=== PATIENT | female | born 1950 | race Caucasian/White ===

== ENCOUNTER 2017-11-04 11:11 | Emergency (ER) | payer BC ==
[2017-11-04 11:12] VITALS: BMI 26.4
[2017-11-04] MEDS ORDERED: Sodium Chloride 0.9% 1,000 ML IV STA (12:16)
--- NOTE | 2017-11-04 12:20 | ED PDOC ---
Arrival/HPI - General Chief Complaint: GI Problem Time Seen by Provider: 11/04/17 11:42 Historian: Patient - History of Present Illness Narrative History of Present Illness (Text): you were treated in the ED today for hx of hypertension, cholesterol, diabetes, and recently in july 2017 diagnosed with Crohn's disease and noting 6 months of intermittent diarrhea/loose stools without bile or blood but having weight loss of about 30 lbs with colonoscopy done at that time and now with back of head discomfort but and otherwise without any head injury/neck pain/ loss of consciousness/nausea/vomiting/headache/dizziness/difficulty breathing/ chest pain/abdomen pain/numbness/tingling/loss of limb function/pain with urination. Time/Duration: Other (6 months) Symptom Onset: Gradual Symptom Course: Intermittent Quality: Aching Severity Level: 1 Activities at Onset: Rest Context: Sitting Past Medical History - Provider Review Nursing Documentation Reviewed: Yes - Travel History Have you recently traveled outside [place] w/in the past 3 mons?: No - Infectious Disease Hx of Infectious Diseases: None - Tetanus Immunization Tetanus Immunization: Unknown - Cardiac Hx Cardiac Disorders: Yes Hx Hypertension: Yes - Pulmonary Hx Respiratory Disorders: No - Neurological Hx Neurological Disorder: No - HEENT Hx HEENT Disorder: No - Renal Hx Renal Disorder: No - Endocrine/Metabolic Hx Endocrine Disorders: Yes Hx Hypothyroidism: Yes - Hematological/Oncological Hx Blood Disorders: No - Integumentary Hx Dermatological Disorder: No - Musculoskeletal/Rheumatological Hx Musculoskeletal Disorders: No - Gastrointestinal Hx Gastrointestinal Disorders: Yes Hx Gastroesophageal Reflux: Yes Other/Comment: CROHNS - Genitourinary/Gynecological Hx Genitourinary Disorders: No - Psychiatric Hx Psychophysiologic Disorder: No Hx Substance Use: No - Past Surgical History Past Surgical History: No Previous - Surgical History Hx Appendectomy: Yes Hx Hysterectomy: Yes - Suicidal Assessment Feels Threatened In Home Enviroment: No Family/Social History - Physician Review Nursing Documentation Reviewed: Yes Family/Social History: No Known Family HX Smoking Status: Never Smoked Hx Alcohol Use: No Hx Substance Use: No Hx Substance Use Treatment: No Allergies/Home Meds Allergies/Adverse Reactions: Allergies No Known Allergies Allergy (Verified 11/04/17 11:28) Home Medications: Home Meds Medication Instructions Recorded Confirmed Levothyroxine [Synthroid] 25 mcg PO DAILY 02/09/16 11/04/17 metFORMIN [glucOPHAGE] 500 mg PO DAILY 02/09/16 11/04/17 SITagliptin [Januvia] 100 mg PO DAILY 11/04/17 11/04/17 Review of Systems - Review of Systems Constitutional: Fatigue Eyes: Normal ENT: Normal Respiratory: Normal Cardiovascular: Normal Gastrointestinal: Stool Changes, Diarrhea Genitourinary Female: Normal Musculoskeletal: Normal Skin: Normal Neurological: Headache Endocrine: Normal Hemo/Lymphatic: Normal Psychiatric: Normal Physical Exam Vital Signs Reviewed: Yes Vital Signs Temp Pulse Resp BP Pulse Ox 11/04/17 13:15 86 18 147/70 98 11/04/17 11:30 98.6 F 82 16 148/98 H 95 Temperature: Afebrile Blood Pressure: Hypertensive Pulse: Regular Respiratory Rate: Normal Appearance: Positive for: Well-Appearing, Non-Toxic, Comfortable Pain Distress: None Mental Status: Positive for: Alert and Oriented X 3 - Systems Exam Head: Present: Atraumatic, Normocephalic Pupils: Present: PERRL Extroacular Muscles: Present: EOMI Conjunctiva: Present: Normal Ears: Present: Normal Mouth: Present: Moist Mucous Membranes Pharnyx: Present: Normal Nose (External): Present: Atraumatic Nose (Internal): Present: Normal Inspection Neck: Present: Normal Range of Motion, Other (no c-t-l spinal or paraspinal tenderness) Respiratory/Chest: Present: Clear to Auscultation Cardiovascular: Present: Regular Rate and Rhythm Abdomen: No: Tenderness, Distention, Normal Bowel Sounds, Peritoneal Signs, Rebound, Guarding, McBurney's Point Tender, Rovsing's Sign Present, Hernias, Feeding Tubes, Ostomy Tubes, Mass/Organomegaly, Scars, Other Back: Present: Normal Inspection Upper Extremity: Present: Normal Inspection Lower Extremity: Present: Normal Inspection Neurological: Present: GCS=15, CN II-XII Intact, Speech Normal, Motor Func Grossly Intact Skin: Present: Warm, Normal Color Psychiatric: Present: Alert, Oriented x 3, Normal Insight, Normal Concentration Medical Decision Making ED Course and Treatment: you were treated in the ED today for hx of hypertension, cholesterol, diabetes, and recently in july 2017 diagnosed with Crohn's disease and noting 6 months of intermittent diarrhea/loose stools without bile or blood but having weight loss of about 30 lbs with colonoscopy done at that time and now with back of head discomfort but and otherwise without any head injury/neck pain/ loss of consciousness/nausea/vomiting/headache/dizziness/difficulty breathing/ chest pain/abdomen pain/numbness/tingling/loss of limb function/pain with urination. You were otherwise breathing easily, pink moist lips, smiling and talking, good strength/sensation, alert/oriented, walking easily, clear lungs, no abdomen tenderness, no spinal tenderness or redness, no fever temp 98.6, stable heart rate 82, stable breathing rate 16, excellent oxygen level 95% room air, elevated blood pressure 148/98_ which we recommend repeat in 2-3 days primary care office to determine further treatment, you have blood tests no infection count 7, stable blood level hemoglobin 10platelets 377, stable chemistry, except for mildly low potassium 3.1 replaced, glucose elevated 209, magnesium mildly low 1.6 replaced, heart blood test negative less than 0.01, lipase 527, urine test negative for infection at this time, ct head radiology showed no acute findings, ct abdomen/pelvis showed no acute findings, ECG sinus rhythm, saline, refused pain medication, observation done in the ED with improvement, counselled to drink lots of fluids and continue to monitor symptoms and thus discharged home. 1. Recommend tylenol as directed for pain. 2. Recommend follow-up primary care 2 days to review symptoms, repeat potassium/ magnesium level to ensure improvement, referral to endocrine clinic for blood sugar control, neurology to review your symptoms, referral gastroenterology to review your symptoms, referral to urology for protein in urine to ensure no complications. 4. If any worsening pain, fever, chills, nausea, vomiting, difficulty breathing, numbness, loss of limb function, pain with urination or any medical condition then return to the ED. Report Date : 11/04/2017 13:03:48 PROCEDURE: CT HEAD WITHOUT CONTRAST. Dictator : Clayton Dixon MD IMPRESSION: No acute findings Report Date : 11/04/2017 15:24:07 PROCEDURE: CT Abdomen and Pelvis with contrast Dictator : Clayton Dixon MD IMPRESSION: No acute findings 11/04/17 16:07 Reassessment Condition: Re-examined, Improved - Lab Interpretations Lab Results: 11/04/17 12:55 11/04/17 12:55 Lab Results 11/04/17 13:05: Urine Color Yellow, Urine Appearance Clear, Urine pH 6.5, Ur Specific [place] 1.010, Urine Protein Trace H, Urine Glucose (UA) 500 H, Urine Ketones Negative, Urine Blood Negative, Urine Nitrate Negative, Urine Bilirubin Negative, Urine Urobilinogen 0.2, Ur Leukocyte Esterase Negative, Urine RBC 0 - 2, Urine WBC 0 - 2, Ur Epithelial Cells 4 - 5, Urine Bacteria Few 11/04/17 12:55: PT 11.8, INR 1.03, APTT 29.1 11/04/17 12:55: Sodium 142, Potassium 3.1 L, Chloride 101, Carbon Dioxide 31, Anion Gap 13, BUN 10, Creatinine 0.5 L, Est GFR ( Amer) > 60, Est GFR ( Non-Af Amer) > 60, Random Glucose 209 H, Calcium 8.9, Magnesium 1.6 L, Total Bilirubin 0.2, AST 12 L, ALT 20, Alkaline Phosphatase 66, Lactate Dehydrogenase 324 L, Total Creatine Kinase 38, Troponin I < 0.01, Total Protein 6.0, Albumin 3.1, Globulin 2.8, Albumin/Globulin Ratio 1.1, Lipase 527 H 11/04/17 12:55: WBC 7.1 D, RBC 3.70, Hgb 10.7 L, Hct 31.8 L, MCV 85.9, MCH 28.9 , MCHC 33.6, RDW 13.6, Plt Count 377, MPV 9.1, Gran % 50.8, Lymph % (Auto) 38.5 H, Amador % (Auto) 8.3 H, Eos % (Auto) 1.8, Baso % (Auto) 0.6, Gran # 3.60, Lymph # (Auto) 2.7, Amador # (Auto) 0.6, Eos # (Auto) 0.1, Baso # (Auto) 0.04 I have reviewed the lab results: Yes - RAD Interpretation Radiology Orders: 11/04/17 12:15 HEAD W/O CONTRAST [CT] Stat 11/04/17 13:54 ABDOMEN & PELVIS [ABD & PELVIS IV CONTRAST ONLY] [CT] Stat - Medication Orders Current Medication Orders: Discontinued Medications Sodium Chloride (Sodium Chloride 0.9%) 1,000 mls @ 999 mls/hr IV .Q1H1M STA Stop: 11/04/17 13:16 Last Admin: 11/04/17 13:02 Dose: 999 mls/hr eMAR Start Stop Document 11/04/17 13:02 [facility] (Rec: 11/04/17 13:02 [id number]) Intravenous Solution Start Date 11/04/17 Start Time 13:02 End Date 11/04/17 End time 14:02 Total Infusion Time 60 Magnesium Sulfate/Dextrose (Magnesium Sulfate 1 Gm/100 Ml D5w) 1 gm in 100 mls @ 100 mls/hr IVPB ONCE ONE Stop: 11/04/17 14:55 Last Admin: 11/04/17 14:31 Dose: 100 mls/hr eMAR Start Stop Document 11/04/17 14:31 [facility] (Rec: 11/04/17 14:31 [id number] Intravenous Solution Start Date 11/04/17 Start Time 14:31 End Date 11/04/17 End time 15:31 Total Infusion Time 60 Potassium Chloride (K-Dur 20 Meq Er Tab) 40 meq PO STAT STA Stop: 11/04/17 13:57 Last Admin: 11/04/17 14:31 Dose: 40 meq Disposition/Present on Arrival - Present on Arrival Any Indicators Present on Arrival: No History of DVT/PE: No History of Uncontrolled Diabetes: Yes Urinary Catheter: No History of Decub. Ulcer: No History Surgical Site Infection Following: None - Disposition Have Diagnosis and Disposition been Completed?: Yes Diagnosis: Headache Disposition: HOME/ ROUTINE Disposition Time: 16:09 Patient Plan: Discharge Condition: IMPROVED Discharge Instructions (ExitCare): Headache, Adult (DC) Additional Instructions: you were treated in the ED today for hx of hypertension, cholesterol, diabetes, and recently in july 2017 diagnosed with Crohn's disease and noting 6 months of intermittent diarrhea/loose stools without bile or blood but having weight loss of about 30 lbs with colonoscopy done at that time and now with back of head discomfort but and otherwise without any head injury/neck pain/ loss of consciousness/nausea/vomiting/headache/dizziness/difficulty breathing/ chest pain/abdomen pain/numbness/tingling/loss of limb function/pain with urination. You were otherwise breathing easily, pink moist lips, smiling and talking, good strength/sensation, alert/oriented, walking easily, clear lungs, no abdomen tenderness, no spinal tenderness or redness, no fever temp 98.6, stable heart rate 82, stable breathing rate 16, excellent oxygen level 95% room air, elevated blood pressure 148/98_ which we recommend repeat in 2-3 days primary care office to determine further treatment, you have blood tests no infection count 7, stable blood level hemoglobin 10platelets 377, stable chemistry, except for mildly low potassium 3.1 replaced, glucose elevated 209, magnesium mildly low 1.6 replaced, heart blood test negative less than 0.01, lipase 527, urine test negative for infection at this time, ct head radiology showed no acute findings, ct abdomen/pelvis showed no acute findings, ECG sinus rhythm, saline, refused pain medication, observation done in the ED with improvement, counselled to drink lots of fluids and continue to monitor symptoms and thus discharged home. 1. Recommend tylenol as directed for pain. 2. Recommend follow-up primary care 2 days to review symptoms, repeat potassium/ magnesium level to ensure improvement, referral to endocrine clinic for blood sugar control, neurology to review your symptoms, referral gastroenterology to review your symptoms, referral to urology for protein in urine to ensure no complications. 4. If any worsening pain, fever, chills, nausea, vomiting, difficulty breathing, numbness, loss of limb function, pain with urination or any medical condition then return to the ED. Referrals: Cynthia Jurado MD [Primary Care Provider] - Follow up with primary Forms: [employer] (Serbian)
[2017-11-04 13:05] LABS: BASO # 0.04 K/mm3 (0.0-2.0); BASO % 0.6 % (0.0-3.0); EOS # 0.1 (0.0-0.7); EOS % 1.8 % (1.5-5.0); GRAN # 3.6 (1.4-6.5); GRAN % 50.8 % (50.0-68.0); HEMOGLOBIN 10.7 g/dL (12.0-16.0); LYMPH # 2.7 (1.2-3.4); LYMPH % 38.5 % (22.0-35.0); MEAN CELL VOLUME 85.9 fl (80.0-105.0); MEAN CORPUSCULAR HEMOGLOBIN 28.9 pg (25.0-35.0); MEAN CORPUSCULAR HGB CONC 33.6 g/dl (31.0-37.0); MEAN PLATELET VOLUME 9.1 fl (7.0-11.0); MONO # 0.6 (0.1-0.6); MONO % 8.3 % (1.0-6.0); RBC 3.7 10^6/uL (3.5-6.1); RED CELL DISTRIBUTION WIDTH 13.6 % (11.5-14.5); WHITE BLOOD COUNT 7.1 10^3/ul (4.5-11.0)
--- NOTE | 2017-11-04 13:05 | CT ---
PROCEDURE: CT HEAD WITHOUT CONTRAST. HISTORY: 66yoF, with posterior headache COMPARISON: 12/02/2015 TECHNIQUE: Axial computed tomography images were obtained through the head/brain without intravenous contrast. Radiation dose: Total exam DLP = 917 mGy-cm. This CT exam was performed using one or more of the following dose reduction techniques: Automated exposure control, adjustment of the mA and/or kV according to patient size, and/or use of iterative reconstruction technique. FINDINGS: HEMORRHAGE: No intracranial hemorrhage. BRAIN: No mass effect or edema. There is a chronic lacunar infarct in the right basal ganglia. Mild microvascular changes are seen. No acute findings VENTRICLES: Unremarkable. No hydrocephalus. CALVARIUM: Unremarkable. PARANASAL SINUSES: Unremarkable as visualized. No significant inflammatory changes. MASTOID AIR CELLS: Unremarkable as visualized. No inflammatory changes. OTHER FINDINGS: None. IMPRESSION: No acute findings
[2017-11-04 13:15] LABS: ALB/GLOB RATIO 1.1 (1.1-1.8); ALBUMIN 3.1 g/dL (3.0-4.8); ALT/SGPT 20 U/L (7-56); AST/SGOT 12 U/L (14-36); BLOOD UREA NITROGEN 10 mg/dL (7-21); CALCIUM 8.9 mg/dL (8.4-10.5); GFR NON-AFRICAN AMERICAN > 60; LIPASE 527 U/L (23-300)
[2017-11-04 13:22] VITALS: RESP 18; O2SAT 98
[2017-11-04 13:26] LABS: TROPONIN I < 0.01 ng/mL
[2017-11-04 13:36] LABS: PH,URINE 6.5 (4.7-8.0); URINE BILIRUBIN NEGATIVE (NEGATIVE); URINE BLOOD NEGATIVE (NEGATIVE); URINE GLUCOSE (UA) 500 mg/dL (NEGATIVE); URINE LEUKOCYTE ESTERASE NEGATIVE Leu/uL (NEGATIVE); URINE PROTEIN TRACE mg/dL (<30 mg/dL); URINE UROBILINOGEN 0.2 E.U./dL (<1 E.U./dL)
[2017-11-04 13:37] LABS: INR 1.03 (0.93-1.08); PARTIAL THROMBOPLASTIN TIME 29.1 Seconds (25.1-36.5); PROTHROMBIN TIME 11.8 SECONDS (9.4-12.5)
[2017-11-04 13:44] LABS: URINE APPEARANCE CLEAR (CLEAR); URINE COLOR YELLOW (YELLOW)
[2017-11-04 13:53] LABS: URINE BACTERIA FEW (NEG); URINE RBC 0 - 2 /hpf (0-2); URINE WBC 0 - 2 /hpf (0-6)
[2017-11-04] MEDS ORDERED: Magnesium Sulfate 1 gm in D5W 1 GM/100 ML BAG IVPB ONE (13:56)
[2017-11-04] MEDS ORDERED: Potassium Chloride 20 mEq ER Tab PO STA (13:56)
[2017-11-04] MEDS ORDERED: Iohexol 350 MG/100 ML VIAL ONE (13:57)
--- NOTE | 2017-11-04 14:56 | CARD ---
APPROVED REPORT EKG Measurement Heart [id number] AL [id number] <Conclusion> Sinus rhythm normal ECG
--- NOTE | 2017-11-04 15:25 | CT ---
PROCEDURE: CT Abdomen and Pelvis with contrast HISTORY: 66yoF, with loose stool/weight loss/lipase 577. COMPARISON: None. TECHNIQUE: Contrast dose: 100 cc of Omni 350 Radiation dose: Total exam DLP = 297 mGy-cm. This CT exam was performed using one or more of the following dose reduction techniques: Automated exposure control, adjustment of the mA and/or kV according to patient size, and/or use of iterative reconstruction technique. FINDINGS: LOWER THORAX: Unremarkable. LIVER: Unremarkable. No gross lesion or ductal dilatation. GALLBLADDER AND BILE DUCTS: Unremarkable. PANCREAS: Unremarkable. No gross lesion or ductal dilatation. SPLEEN: Unremarkable. ADRENALS: Unremarkable. No mass. KIDNEYS AND URETERS: Unremarkable. No hydronephrosis. No solid mass. VASCULATURE: Unremarkable. No aortic aneurysm. BOWEL: Unremarkable. No obstruction. No gross mural thickening. APPENDIX: Normal appendix. PERITONEUM: Unremarkable. No free fluid. No free air. LYMPH NODES: Unremarkable. No enlarged lymph nodes. BLADDER: Unremarkable. REPRODUCTIVE: Unremarkable. BONES: No acute fracture. OTHER FINDINGS: None. IMPRESSION: No acute findings
[2017-11-04 16:41] VITALS: BP 110/72; PULSE 72; TEMP 98
== END 2017-11-04 16:41 | disposition home or self-care (01) ==
LOC: ED 11:11
DX: R51 Headache (principal)
CPT/HCPCS: 70450; 74177; 80053; 81001; 82550; 83615; 83690; 83735; 84484; 85025; 85610; 85730; 87086; 93005; 96361; 96365; 99284; J3475; J7040; Q9967

== ENCOUNTER 2018-07-09 08:58 | Outpatient (CLI) | payer MEDICARE, BC | END 2018-07-09 08:59 | disposition home or self-care (01) | LOC: RAD 08:58 ==